=== PATIENT | female | born 1955 | race Caucasian/White ===

== ENCOUNTER 2024-06-07 20:57 | Emergency (ER) | payer MEDICARE, BC ==
[2024-06-07] MEDS: Lidocaine 1% with EPINEPHrine 1:100,000 20 ML MDV INJECT ONE (21:10)
[2024-06-07] MEDS: Lidocaine 1% with EPINEPHrine 1:100,000 20 ML MDV ONE (22:27)
[2024-06-07] MEDS: Bacitracin/Neomycin/Polymyxin B Oint 0.9 GM U/D Packet ONE (22:38)
[2024-06-07] MEDS: Bacitracin/Neomycin/Polymyxin B Oint 0.9 GM U/D Packet TOP ONE (22:39)
[2024-06-07] MEDS: Diphtheria,Pertussis(Acell),Tetanus Vaccine 0.5 ML Syringe IM ONE (23:11)
[2024-06-07 23:12] VITALS: BP 109/57; PULSE 54
== END 2024-06-07 22:45 | disposition home or self-care (01) ==
LOC: KA.ED 20:57
DX: S01.81XA Laceration without foreign body of other part of head, initial encounter (principal); W01.10XA Fall on same level from slipping, tripping and stumbling with subsequent striking against unspecified object, initial encounter
CPT/HCPCS: 12013; 70450; 90471; 99283; 99283-25; J3490